=== PATIENT | male | born 1995 | race Caucasian/White ===

== ENCOUNTER 2023-06-18 01:53 | Emergency (ER) | payer OTHER, SELFPAY ==
[2023-06-18 01:58] VITALS: BP 127/87; PULSE 85; RESP 16; TEMP 36.9; O2SAT 98; BMI 19.9
[2023-06-18 02:08] VITALS: O2SAT 99
[2023-06-18 02:24] LABS: Carboxyhemoglobin* 1.6 % (0.0-5.0)
[2023-06-18 02:26] LABS: Basophils Absolute Auto 0.02 K/uL (0.00-0.30); Basophils Percent Auto 0.2 % (0.0-3.0); Eosinophils Absolute Auto 0.09 K/uL (0.00-0.50); Hematocrit 45.8 % (37.0-53.0); Hemoglobin* 15.6 gm/dL (13.5-17.5); Immature Granulocytes Abs Auto 0.02 K/uL (0.00-0.30); Immature Granulocytes Pct Auto 0.2 %; Lymphocytes Absolute Auto 2.14 K/uL (0.90-2.90); Lymphocytes Percent Auto 24.2 % (20-44); Mean Corpuscular HGB Conc 34 gm/dL (32-36); Mean Corpuscular Hemoglobin 30 pg (26-34); Mean Corpuscular Volume 88 fL (80-100); Neutrophils Absolute Auto 5.78 K/uL (1.7-7.0); Neutrophils Percent Auto 65.4 % (42.0-72.0); Platelet Count* 236 K/uL (140-440); RDW Coefficient of Variation % 12.3 % (11.5-15.5); Red Blood Count 5.18 m/uL (4.30-5.90); Slide Review Reflex No; White Blood Count* 8.85 K/uL (4.50-11.00)
--- NOTE | 2023-06-18 02:26 | PC.NURSE ---
patient visualized on camera
[2023-06-18 02:41] LABS: Albumin* 4.9 g/dL (3.3-5.0); Chloride* 106 mmol/L (96-114)
[2023-06-18 02:42] LABS: Potassium* 3.7 mmol/L (3.6-5.1); Sodium* 141 mmol/L (135-149)
[2023-06-18 02:44] LABS: Alkaline Phosphatase* 55 U/L (40-150); Anion Gap 10 mEq/L (7-15); Aspartate Amino Transferase* 27 U/L (12-35); Bilirubin Total* 0.8 mg/dL (0.1-1.5); Blood Urea Nitrogen* 18 mg/dL (5-24); Carbon Dioxide* 25 mmol/L (20-32); Creatinine* 0.6 mg/dL (0.5-1.5); Est. Creatinine Clearance* 163.01; Estimated Glomerular Filt Rate 137 ml/min; Total Protein* 7.7 g/dL (6.0-8.3)
[2023-06-18 02:45] LABS: Alanine Aminotransferase* 15 U/L (4-50); Calcium* 9.6 mg/dL (8.4-10.6); Glucose* 95 mg/dL (60-115)
[2023-06-18 02:46] LABS: Acetaminophen* < 10.0 ug/mL (10.0-30.0); Ethanol* < 0.01 % (0.01-0.03); Salicylate* < 1.0 mg/dL (1.0-10)
--- NOTE | 2023-06-18 02:53 | ED.PSYCH ---
HPI - Psych General Chief Complaint: Psychiatric Problem/Disorder Stated Complaint: attempted suicide Time Seen by Provider: 06/18/23 02:13 Source: patient Mode of arrival: ambulatory Limitations: no limitations History of Present Illness HPI Narrative: 27-year-old male presents the emergency department about 1 hour after a suicide attempt in his home. Reports that he has been depressed for the last couple of months. Things stemmed from Garcia break-up with his significant other back in December. He had some initial reactive depression symptoms but then began talking more with that person it sounds as though they were casually hanging out, hoping to rekindle their relationship. He had been hopeful that they would be getting back together. He reports that this continued from March through may. She go sit him in may, he reports that his anxiety and sadness increased since that time. They are scheduled to attend a concert together on the . They had still plan to go together. She texted him the day of the concert and stated that she was too ill to attend. He ended up going to the concert any way where he ran into her. Ever since then his symptoms have escalated. He started contemplating ending his life about 30 hours ago. He told himself that if things did not improve, he would attempt to end his life with carbon monoxide in the garage this evening. He reports that he stepped a pipe into his tail pipe of his car, closed up the garage and started the vehicle. He stayed in the car for over an hour and did not notice any physical symptoms. He started to become remorseful and texted his mother who attended him and brings him to the emergency department. He is not feeling dizzy, lightheaded, short of breath. He is mentating normally. He has no prior history of suicide attempt or self-harm. He reports that he has been diagnosed with depression in the past, this was about 10 years ago. It sounds like he was treated with medications for several months but states that he did not notice any improvement from them. It sounds like he worked with a counselor for about 2 years but is no longer doing so. He has not had any mental health services in probably about 9 years. He denies excessive use of alcohol, denies illicit drug use. Reports no long-term medical illness these or long-term prescription medications. He moved back in with his parents a few months ago, this is a little bit strained. He reports that his relationship with his father is difficult and his mother seems to be supportive but they do are you at times as well. Patient is hoping to get his own place in about a month and has been actively working towards this. 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 His performance at work sounds like it is going well. He is even hopeful to advanced in the career. 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 All of his basic needs are met at this time. Past medical history is notable for prior depression, I do not have access to those records. No long-term medications, no allergies. ROS notable for the mood symptoms as described above only, otherwise denies times 12 systems. Related Data Home Medications Medication Instructions Recorded Confirmed No Known Home Medications 06/18/23 06/18/23 Allergies Allergy/AdvReac Type Severity Reaction Status Date / Time No Known Drug Allergies Allergy Verified 06/18/23 02:06 PFSH PFS Social History Non-prescribed substance use: denies use Exam Const: Vital Signs, click to edit/add: Vital Signs - 24 hr 06/18/23 01:58 06/18/23 02:08 06/18/23 05:17 Temperature 98.5 F Pulse Rate [Pulse Oximeter] 85 77 Respiratory Rate 16 16 Blood Pressure [Ri ght Upper Arm] 127/87 117/74 Pulse Oximetry 98 99 97 Oxygen Delivery Me thod Room Air Room Air Room Air 06/18/23 07:49 Temperature 98.4 F Pulse Rate [Pulse Oximeter] 79 Respiratory Rate 14 Blood Pressure [Ri ght Upper Arm] 121/78 Pulse Oximetry 97 Oxygen Delivery Me thod Room Air Documenting provider has reviewed patient's vital signs: yes Common normals: no apparent distress, oriented x3 and alert General appearance: cooperative, comfortable and well kempt Orientation/consciousness: Yes awake HENMT: Common normals: normocephalic, moist oral mucous membranes and oropharynx normal Head and scalp: normocephalic Eye: Common normals: conjunctivae normal General eye: normal appearance of both eyes Conjunctiva: conjunctiva(e) normal Neck & C-Spine: Common normals: full ROM and no lymphadenopathy Resp: Common normals: normal respiratory effort, no use of accessory muscles and clear to auscultation bilaterally Effort & inspection: able to speak in complete sentences Auscultation: clear to auscultation bilaterally Cardio: Common normals: regular rate, regular rhythm, S1 normal heart sound, S2 normal heart sound and no murmurs Rate: regular rate Rhythm: regular rhythm Heart sounds: S1 normal and S2 normal GI: Common normals: Normal to inspection, nondistended, normoactive bowel sounds present, soft to palpation, non-tender, no hepatosplenomegaly and no masses Palpation: soft and no hepatosplenomegaly Back & Pelvis: Common normals: thoracic and lumbar spine normal to inspection Extremity: Common normals: normal to inspection, normal capillary refill and no joint enlargement Neuro: Common normals: oriented x3, moves all extremities and no focal motor deficits Sensorium/orientation: awake and alert Speech: speech normal Gait (neuro): normal gait Psych: Common normals: thought process normal and speech normal Appearance: well kempt Attitude: engaged Activity/motor behavior: appropriate eye contact Speech: normal speech Mood and affect: anxious Thought process: normal thought process Insight: insight good Judgement: judgment good Other: Remorseful but still verbalizes some suicidal thoughts. Does not verbalize a new suicidal plan to me at this time. Skin: Common normals: no rashes or lesions noted Narrative: No signs of self-injury or scarring consistent with prior self-harm. General skin exam: no rashes or lesions noted Course Course ED Course: 27-year-old male with escalating depression symptoms and suicide attempt tonight. I obtained a stat carbon monoxide level and thankfully this is only 1.6%, he will not require oxygen or any other treatment. He is medically cleared for deck assessment. Additional basic labs obtained. Await input from mental health specialist. Age and gender are very high risk for suicide completion. No signs of medical injury from carbon monoxide inhalation. Reevaluation(s) Time of Reevaluation #1: 05:29 Reevaluation #1: Spoke with Maria L from dec. Inpatient placement recommended. This time patient is voluntary. COVID swab ordered per her request. Awaiting placement details. Will be placed on transport hold. Reevaluation #2: Patient has been accepted to [facility] under the care of Dr. Wallace. Transport pending. Vital Signs Vital signs: Initial Vital Signs Temperature 98.5 F 06/18/23 01:58 Temperature Source Temporal Artery Scan 06/18/23 01:58 Pulse Rate 85 06/18/23 01:58 Respiratory Rate 16 06/18/23 01:58 Blood Pressure 127/87 06/18/23 01:58 Blood Pressure Mean 100 06/18/23 01:58 Blood Pressure Position Sitting 06/18/23 01:58 Pulse Oximetry 98 06/18/23 01:58 Oxygen Delivery Method Room Air 06/18/23 01:58 Vital Signs Temperature 98.5 F 06/18/23 01:58 Pulse Rate 85 06/18/23 01:58 Respiratory Rate 16 06/18/23 01:58 Blood Pressure 127/87 06/18/23 01:58 Pulse Oximetry 98 06/18/23 01:58 Oxygen Delivery Method Room Air 06/18/23 01:58 Temperature 98.4 F 06/18/23 07:49 Pulse Rate 79 06/18/23 07:49 Respiratory Rate 14 06/18/23 07:49 Blood Pressure 121/78 06/18/23 07:49 Pulse Oximetry 97 06/18/23 07:49 Oxygen Delivery Method Room Air 06/18/23 07:49 MDM - Psych MDM Narrative Medical decision making narrative: Differential diagnosis including substance induced mood disorder, depression, bipolar disorder, anxiety disorder, stress reaction, psychosis, suicide risk. Lab Data Attestation: I reviewed the patient's lab results. Lab results narrative: All reassuring. Carbon monoxide level only 1.6%. Labs: Lab Results 06/18/23 06/18/23 06/18/23 Range/Units 02:19 02:45 05:32 WBC 8.85 (4.50-11.00) K/uL RBC 5.18 (4.30-5.90) m/uL Hgb 15.6 (13.5-17.5) gm/dL Hct 45.8 (37.0-53.0) % MCV 88 (80-100) fL MCH 30 (26-34) pg MCHC 34 (32-36) gm/dL RDW Coeff of Eliz 12.3 (11.5-15.5) % Plt Count 236 (140-440) K/uL Neut % (Auto) 65.4 (42.0-72.0) % Lymph % (Auto) 24.2 (20-44) % [place] % (Auto) 9.0 (0.0-11.0) % Eos % (Auto) 1.0 (0.0-7.0) % Baso % (Auto) 0.2 (0.0-3.0) % Neut # (Auto) 5.78 (1.7-7.0) K/uL Lymph # (Auto) 2.14 (0.90-2.90) K/uL [place] # (Auto) 0.80 (0.00-0.90) K/UL Eos # (Auto) 0.09 (0.00-0.50) K/uL Baso # (Auto) 0.02 (0.00-0.30) K/uL Abs Immat Gran (auto) 0.02 (0.00-0.30) K/uL Imm/Tot Granulo (auto) 0.2 % Carboxyhemoglobin 1.6 (0.0-5.0) % Sodium 141 (135-149) mmol/L Potassium 3.7 (3.6-5.1) mmol/L Chloride 106 (96-114) mmol/L Carbon Dioxide 25 (20-32) mmol/L Anion Gap 10 (7-15) mEq/L BUN 18 (5-24) mg/dL Creatinine 0.6 (0.5-1.5) mg/dL Estimated Creat Clear 163.01 Estimated GFR 137 ml/min Glucose 95 (60-115) mg/dL Calcium 9.6 (8.4-10.6) mg/dL Total Bilirubin 0.8 (0.1-1.5) mg/dL AST 27 (12-35) U/L ALT 15 (4-50) U/L Alkaline Phosphatase 55 (40-150) U/L Total Protein 7.7 (6.0-8.3) g/dL Albumin 4.9 (3.3-5.0) g/dL Salicylates < 1.0 L (1.0-10) mg/dL Urine Opiates Screen Negative (Negative) Ur Oxycodone Screen Negative (Negative) Urine Methadone Screen Negative (Negative) Acetaminophen < 10.0 L (10.0-30.0) ug/mL Ur Barbiturates Screen Negative (Negative) U Tricyclic Antidepress Negative (Negative) Ur Phencyclidine Scrn Negative (Negative) Ur Amphetamines Screen Negative (Negative) U Methamphetamines Scrn Negative (Negative) U Benzodiazepines Scrn Negative (Negative) Urine Cocaine Screen Negative (Negative) U Marijuana (THC) Screen POSITIVE A (Negative) Ur Drug Screen Comment See Note Ethyl Alcohol < 0.01 L (0.01-0.03) % SARS-CoV-2 (PCR) Negative SARS-CoV-2 (Negative) Discharge Plan Discharge Clinical Impression: Suicide attempt Patient Disposition: Xfer Other Discharge Location: [facility] Prescriptions: No Action No Known Home Medications Stand Alone Forms: MyHealth Info Instructions
--- NOTE | 2023-06-18 02:56 | PC.NURSE ---
patient changed into paper scrubs, patient at first very resistant to changing; MD spoke to patient and compromised allowing patient to keep sweatshirt. items searched and itemized with security. belongings locked in med room. mom at bedside. Dr Kasper allows patient to have phone at this time. patient advised of appropriate phone use and patient in agreeable and cooperative.
[2023-06-18 02:57] LABS: Amphetamine Screen Urine Negative (Negative); Barbiturate Screen Urine Negative (Negative); Benzodiazepines Screen Urine Negative (Negative); Cannabinoid Screen Urine POSITIVE (Negative); Cocaine Screen Urine Negative (Negative); Methadone Screen Urine Negative (Negative); Methamphetamines Screen Urine Negative (Negative); Opiate Screen Urine Negative (Negative); Oxycodone Screen Urine Negative (Negative); Phencyclidine Screen Urine Negative (Negative); Tricyclic Antidepressant Urine Negative (Negative)
--- NOTE | 2023-06-18 05:16 | PC.NURSE ---
finished with dec
[2023-06-18 05:17] VITALS: BP 117/74; PULSE 77; RESP 16; O2SAT 97
[2023-06-18 06:14] LABS: SARS PCR* Negative SARS-CoV-2 (Negative)
[2023-06-18 07:49] VITALS: BP 121/78; PULSE 79; RESP 14; TEMP 36.9; O2SAT 97
--- NOTE | 2023-06-18 07:53 | ED.NURSE ---
Updated patients mother that patient will be going to [facility]. Address provided. Patient ambulated to bathroom. Voluntary.
== END 2023-06-18 08:25 | disposition other institution (70) ==
PROVIDERS: Emergency Provider Family Medicine
DX: T14.91XA Suicide attempt, initial encounter (principal); X83.8XXA Intentional self-harm by other specified means, initial encounter
CPT/HCPCS: 36415; 80053; 80143; 80179; 80306; 82077; 82375; 85025; 87635; 99284; 99285

== ENCOUNTER 2023-06-18 08:15 | Outpatient (CLI) | payer OTHER, SELFPAY | END 2023-06-18 08:16 | disposition home or self-care (01) | LOC: AMB 06-19 14:03 | PROVIDERS: Visit Provider Student in an Organized Health Care Education/Training Program | DX: R45.851 Suicidal ideations (principal) | CPT/HCPCS: A0425; A0428 ==